=== PATIENT | male | born 1955 | race Caucasian/White ===

== ENCOUNTER 2018-03-11 13:18 | Inpatient (IN) | payer MEDICARE, SELFPAY ==
[2018-03-11] VITALS (55 sets, daily range): BP systolic 128–218; BP diastolic 79–143; PULSE 63–87; RESP 5–26; TEMP 36.4–36.5; O2SAT 91–99
--- NOTE | 2018-03-11 13:31 | W.ED.GENAD ---
Discharge Plan Discharge Details Chief Complaint: Chest Pain Reason For Visit: CHEST PAIN, ELEVATED TROPONIN Admit Date/Time: 03/11/18 16:29 Admit Provider: Yeyo Roque Attending Provider: Yeyo Roque Primary Care Provider: Mirtha Reinoso V ED Provider: Milagro Reyes Discharge Data Discharge Date/Time-TO BE ENTERED AT DEPARTURE: 03/11/18 17:28 Medical Decision Making Luis Antonio Brandt is a 63 y/o man with h/o CKD, CAD with nonobstructing lesions on last cath, HTN, HLD, DM who presented to the emergency department with exertional chest pain over the past few days, worse this afternoon and not resolving with rest. On exam Pt with cardiac murmur, otherwise benign cardiopulmonary exam, no edema. Concern for ACS, PE, MSK pain, GERD, vs other. Exam/hx not c/w acute aortic process. Plan for EKG, ASA, CXR, screening labs, IVF, telemetry, SLNG. Pt with some improvement in pain with SLNG. Plan for NG gtt. EKG with inferior changes. Trop elevated. Called [facility], requested cardiology consult, informed by transfer center no beds available for NSTEMI-level Pts. EKG faxed. Called [facility], EKG faxed, spoke with Dr. Jolley of cardiology re: Pt repsentation and results, she reviewed EKG and recommended heparin gtt, plavix load 300mg continue NG gtt. Accepted for transfer, no bed availability. [facility] called back, agreeds with recs, also accepted Pt for transfer, no current beds available. Pt admitted to [facility] for NSTEMI. I have spent 40 minutes of critical care time with this critically ill pt, including discussions with consultants, monitoring of gtts, and frequent reassessments. Medical Records Medical records reviewed: Yes I reviewed the patient's medical records. Imaging Data Radiologic Study: Attestation: I personally reviewed and interpreted this imaging study as follows: Radiologist's impression: PORTABLE AP CHEST: No priors. The heart size and pulmonary vasculature are within normal limits. The mediastinum has a normal appearance. The lungs are clear. No effusions or pneumothoraces are identified. The bones are intact. IMPRESSION: Negative chest x-ray. Lab Data Lab results reviewed: Yes I reviewed the patient's lab results. ECG Data Attestation: I personally reviewed and interpreted this ECG (s) as follows: Interpretation: EKG shows normal sinus rhythm at 73, normal axis, left bundle branch block, subtle ST changes inferior leads compared to prior, no STEMI, nondiagnostic EKG repeat EKG unchanged Clinical Impression: NSTEMI Disposition: [facility] inpt [facility] General Mode of arrival: ambulatory. Date/Time Provider Initiated Documentation: 03/11/18 13:25. Limitations to Documentation: no limitations. Information obtained by: patient, RN notes reviewed and old records reviewed. HPI Narrative: Luis Antonio Brandt is a 63 y/o man with h/o CAD, CKD, DM, HLD, HTN presenting to the emergency department with chest pain. Pt reports that over the past few days he has been working on building a barn, and has noticed chest pressure radiating into his neck and arms intermittently during this time. Today at noon Pt was working on the barn, and developed same symptoms but worse in severity. Pt reports that chest pain did not improve with rest as it has in the past, and continues now. He denies any other pain. No fever, SOB, cough, n/t, weakness, n/v/d. Pt reports no recent illness, no recent travel. Has been eating and drinking normally. Related Data Home Medications Medication Instructions Recorded Confirmed bupropion HCl 150 mg PO DAILY 09/03/13 09/08/13 bupropion HCl [Wellbutrin] 75 mg PO . BEFORE 3PM 09/03/13 09/07/13 fluticasone 1 spry NS DAILY 09/03/13 09/08/13 hydrochlorothiazide 25 mg PO DAILY 09/03/13 03/11/18 hydrocodone-acetaminophen 1 ea PO Q4H #20 tab 09/03/13 03/11/18 insulin aspart U-100 [Novolog] 30 unit SQ TID 09/03/13 03/11/18 insulin glargine [Lantus] 50 unit SQ BID 09/03/13 09/08/13 lovastatin 40 mg PO HS 09/03/13 09/08/13 metformin [Glucophage] 1,000 mg PO BID 09/03/13 03/11/18 niacin [Niaspan] 500 mg PO BID 09/03/13 03/11/18 sitagliptin [Januvia] 100 mg PO DAILY 09/03/13 09/08/13 trazodone 100 mg PO HS 09/03/13 03/11/18 valsartan [Diovan] 320 mg PO HS 09/03/13 03/11/18 verapamil 240 mg PO HS 09/03/13 03/11/18 Previous Rx's Medication Instructions Recorded hydrocodone-acetaminophen 1 ea PO Q4H #20 tab 09/03/13 Allergies Allergy/AdvReac Type Severity Reaction Status Date / Time codeine AdvReac Intermediate Agitation Unverified 03/11/18 18:26 morphine AdvReac Intermediate Agitation Unverified 03/11/18 18:26 General Stated Complaint: Chest Pain ANGUS: 2 Review of Systems Review of Systems Constitutional: denies fevers Eyes: denies eye pain ENT: denies facial pain, dental pain, sore throat Cardiovascular: reports chest pain, denies edema Respiratory: denies SOB, cough GI: denies abdominal pain, vomiting, diarrhea : denies flank pain MSK: denies back pain, neck pain, arthralgias, myalgias Skin: denies rash Neuro: denies headaches, lightheadedness, weakness PFSH Medical History History of TIA (transient ischemic attack) (Chronic) Erectile dysfunction (Chronic) Depression (Chronic) CAD (coronary artery disease) (Chronic) BPV (benign positional vertigo) (Chronic) CKD (chronic kidney disease) (Chronic) Diabetes mellitus (Chronic) Morbid obesity with BMI of 45.0-49.9, adult (Chronic) Hyperlipidemia (Chronic) History of depression (Chronic) GERD (gastroesophageal reflux disease) (Chronic) Hypertension (Chronic) Surgical History History of Surgical Procedure (Chronic) Social History Smoking/Tobacco Use Status: Never Exam Narrative Exam Narrative: Constitutional: well and [id number], pleasant, conversing normally HENT: head atraumatic, normocephalic normal inspection, mucous membranes moist Eyes: conjunctiva normal, sclera normal, pupils 3mm b/l Neck: no stridor, normal ROM, trachea midline Chest: normal inspection Resp: normal work of breathing, LCTAB Cardio: normal rate, normal rhythm, 3/6 systolic murmur GI: abdomen soft, non-tender, non-distended Back: normal inspection, no rash Skin: warm, dry, normal color, no rash Neuro: alert, not altered, grossly non-focal, normal tone Ext: no edema Psych: normal mood, normal affect, normal behavior Course Vital Signs Temperature 36.4 C L 03/11/18 13:25 Pulse 74 03/11/18 13:25 Respiratory Rate 10 L 03/11/18 13:25 Blood Pressure 218/105 H 03/11/18 13:25 Pulse Oximetry 97 03/11/18 13:25 Temperature 36.4 C L 03/11/18 13:25 Temperature Source Skin 03/11/18 13:25 Pulse 74 03/11/18 13:25 Respiratory Rate 10 L 03/11/18 13:25 Blood Pressure 218/105 H 03/11/18 13:25 Blood Pressure Position Supine 03/11/18 13:25 Pulse Oximetry 97 03/11/18 13:25 Oxygen Delivery Method Room Air 03/11/18 13:25 Oxygen Flow Rate 0 03/11/18 13:25
--- NOTE | 2018-03-11 13:39 | DI.RAD_ITS ---
SYMPTOMS/DIAGNOSIS: CHEST PAIN PORTABLE AP CHEST: No priors. The heart size and pulmonary vasculature are within normal limits. The mediastinum has a normal appearance. The lungs are clear. No effusions or pneumothoraces are identified. The bones are intact. IMPRESSION: Negative chest x-ray.
[2018-03-11 13:51] LABS: Abs Immature Grans 0.02 k/cumm (0.0-0.09); Absolute Basophil Count 0.01 k/cumm (0.0-0.2); Absolute Eosinophil Count 0.28 k/cumm (0.0-0.7); Absolute Lymphocyte Count 1.07 k/cumm (1.2-3.4); Absolute Monocyte Count 0.75 k/cumm (0.11-0.7); Absolute Neutrophil Count 3.98 k/cumm (1.2-6.7); Basophils % 0.2; Eosinophils % 4.6; HCT 40.7 % (40.0-50.0); HGB 14.2 g/dL (13.5-17.5); Immature Grans % 0.3; Lymphocytes % 17.5; Mean Corp. HGB Concentration 34.9 g/dL (32.0-36.0); Mean Corpuscular Hemoglobin 30.2 pg (27.0-33.0); Mean Corpuscular Volume 86.6 fL (80-95); Mean Platelet Volume 9.8 fL (8.0-11.0); Monocytes % 12.3; Neutrophils % 65.1; Platelet Count 221 x1000/uL (130-400); RBC Distribution Width 13.4 % (11.8-14.1); White Blood Cell Count 6.11 k/cumm (4.4-10.8)
--- NOTE | 2018-03-11 13:54 | ED.GENADUL_ITS ---
Discharge Plan Discharge Details Chief Complaint: Chest Pain Reason For Visit: CHEST PAIN, ELEVATED TROPONIN Admit Date/Time: 03/11/18 16:29 Admit Provider: Yeyo Roque Attending Provider: Yeyo Roque Primary Care Provider: Mirtha Reinoso V ED Provider: Milagro Reyes Discharge Data Discharge Date/Time-TO BE ENTERED AT DEPARTURE: 03/11/18 17:28 Medical Decision Making Luis Antonio Brandt is a 63 y/o man with h/o CKD, CAD with nonobstructing lesions on last cath, HTN, HLD, DM who presented to the emergency department with exertional chest pain over the past few days, worse this afternoon and not resolving with rest. On exam Pt with cardiac murmur, otherwise benign cardiopulm onary exam, no edema. Concern for ACS, PE, MSK pain, GERD, vs other. Exam/hx not c/w acute aortic process. Plan for EKG, ASA, CXR, screening labs, IVF, telemetry, SLNG. Pt with some improvement in pain with SLNG. Plan for NG gtt. EKG with inferior changes. Trop elevated. Called [facility], requested cardiology consult, informed by transfer center no beds available for NSTEMI-level Pts. EKG faxed. Called [facility], EKG faxed, spoke with Dr. Jolley of cardiology re: Pt repsentation and results, she reviewed EKG and recommended heparin gtt, plavix load 300mg continue NG gtt. Accepted for transfer, no bed availability. [facility] called back, agreeds with recs, also accepted Pt for transfer, no current beds available. Pt admitted to [facility] for NSTEMI. I have spent 40 minutes of critical care time with this critically ill pt, including discussions with consultants, monitoring of gtts, and frequent reassessments. Medical Records Medical records reviewed: Yes I reviewed the patient's medical records. Imaging Data Radiologic Study: Attestation: I personally reviewed and interpreted this imaging study as follows: Radiologist's impression: PORTABLE AP CHEST: No priors. The heart size and pulmonary vasculature are within normal limits. The mediastinum has a normal appearance. The lungs are clear. No effusions or pneumothoraces are identified. The bones are intact. IMPRESSION: Negative chest x-ray. Lab Data Lab results reviewed: Yes I reviewed the patient's lab results. ECG Data Attestation: I personally reviewed and interpreted this ECG (s) as follows: Interpretation: EKG shows normal sinus rhythm at 73, normal axis, left bundle branch block, subtle ST changes inferior leads compared to prior, no STEMI, nondiagnostic EKG repeat EKG unchanged Clinical Impression: NSTEMI Disposition: [facility] inpt [facility] General Mode of arrival: ambulatory . Date/Time Provider Initiated Documentation: 03/11/18 13:25 . Limitations to Documentation: no limitations . Information obtained by: patient, RN notes reviewed and old records reviewed . HPI Narrative: Luis Antonio Brandt is a 63 y/o man with h/o CAD, CKD, DM, HLD, HTN presenting to the emergency department with chest pain. Pt reports that over the past few days he has been working on building a barn, and has noticed chest pressure radiating into his neck and arms intermittently during this time. Today at noon Pt was working on the barn, and developed same symptoms but worse in severity. Pt reports that chest pain did not improve with rest as it has in the past, and continues now. He denies any other pain. No fever, SOB, cough, n/t, weakness, n/v/d. Pt reports no recent illness, no recent travel. Has been eating and drinking normally. Related Data Home Medications Medication Instructions Recorded Confirmed bupropion HCl 150 mg PO DAILY 09/03/13 09/08/13 bupropion HCl [Wellbutrin] 75 mg PO . BEFORE 3PM 09/03/13 09/07/13 fluticasone 1 spry NS DAILY 09/03/13 09/08/13 hydrochlorothiazide 25 mg PO DAILY 09/03/13 03/11/18 hydrocodone-acetaminophen 1 ea PO Q4H #20 tab 09/03/13 03/11/18 insulin aspart U-100 [Novolog] 30 unit SQ TID 09/03/13 03/11/18 insulin glargine [Lantus] 50 unit SQ BID 09/03/13 09/08/13 lovastatin 40 mg PO HS 09/03/13 09/08/13 metformin [Glucophage] 1,000 mg PO BID 09/03/13 03/11/18 niacin [Niaspan] 500 mg PO BID 09/03/13 03/11/18 sitagliptin [Januvia] 100 mg PO DAILY 09/03/13 09/08/13 trazodone 100 mg PO HS 09/03/13 03/11/18 valsartan [Diovan] 320 mg PO HS 09/03/13 03/11/18 verapamil 240 mg PO HS 09/03/13 03/11/18 Previous Rx's Medication Instructions Recorded hydrocodone-acetaminophen 1 ea PO Q4H #20 tab 09/03/13 Allergies Allergy/AdvReac Type Severity Reaction Status Date / Time codeine AdvReac Intermediate Agitation Unverified 03/11/18 18:26 morphine AdvReac Intermediate Agitation Unverified 03/11/18 18:26 General Stated Complaint: Chest Pain ANGUS: 2 Review of Systems Review of Systems Constitutional: denies fevers Eyes: denies eye pain ENT: denies facial pain, dental pain, sore throat Cardiovascular: reports chest pain, denies edema Respiratory: denies SOB, cough GI: denies abdominal pain, vomiting, diarrhea : denies flank pain MSK: denies back pain, neck pain, arthralgias, myalgias Skin: denies rash Neuro: denies headaches, lightheadedness, weakness PFSH Medical History History of TIA (transient ischemic attack) (Chronic) Erectile dysfunction (Chronic) Depression (Chronic) CAD (coronary artery disease) (Chronic) BPV (benign positional vertigo) (Chronic) CKD (chronic kidney disease) (Chronic) Diabetes mellitus (Chronic) Morbid obesity with BMI of 45.0-49.9, adult (Chronic) Hyperlipidemia (Chronic) History of depression (Chronic) GERD (gastroesophageal reflux disease) (Chronic) Hypertension (Chronic) Surgical History History of Surgical Procedure (Chronic) Social History Smoking/Tobacco Use Status: Never Exam Narrative Exam Narrative: Constitutional: well and [id number], pleasant, conversing normally HENT: head atraumatic, normocephalic normal inspection, mucous membranes moist Eyes: conjunctiva normal, sclera normal, pupils 3mm b/l Neck: no stridor, normal ROM, trachea midline Chest: normal inspection Resp: normal work of breathing, LCTAB Cardio: normal rate, normal rhythm, 3/6 systolic murmur GI: abdomen soft, non-tender, non-distended Back: normal inspection, no rash Skin: warm, dry, normal color, no rash Neuro: alert, not altered, grossly non-focal, normal tone Ext: no edema Psych: normal mood, normal affect, normal behavior Course Vital Signs Temperature 36.4 C L 03/11/18 13:25 Pulse 74 03/11/18 13:25 Respiratory Rate 10 L 03/11/18 13:25 Blood Pressure 218/105 H 03/11/18 13:25 Pulse Oximetry 97 03/11/18 13:25 Temperature 36.4 C L 03/11/18 13:25 Temperature Source Skin 03/11/18 13:25 Pulse 74 03/11/18 13:25 Respiratory Rate 10 L 03/11/18 13:25 Blood Pressure 218/105 H 03/11/18 13:25 Blood Pressure Position Supine 03/11/18 13:25 Pulse Oximetry 97 03/11/18 13:25 Oxygen Delivery Method Room Air 03/11/18 13:25 Oxygen Flow Rate 0 03/11/18 13:25
--- NOTE | 2018-03-11 14:01 | NUR.NOTE ---
Nursing Note: patient reveived 3 nitro 0.4 sl per MD order, patient reports chest pain improved with nitro. 2lpm nc cannula applied, reports feeling hard to breath
[2018-03-11 14:18] LABS: ALT 31 U/L (12-78); AST 27 U/L (15-37); Alkaline Phosphatase 98 U/L (46-116); Anion Gap 11.6 mmol/L (3-11); BUN 25 mg/dL (7-18); Bilirubin, Total 0.4 mg/dL (0.2-1.0); CO2 24.4 mmol/L (21.0-32.0); CREATININE 1.52 mg/dL (0.70-1.30); Calcium 9.3 mg/dL (8.5-10.1); Chloride 99 mmol/L (98-107); Estimated GFR 46.26 (mL/min/1.73m2); Glucose 308 mg/dL (70-100); Potassium 4.1 mmol/L (3.5-5.1); Sodium 135 mmol/L (136-145); Total Protein 8.1 g/dL (6.4-8.2)
[2018-03-11 14:19] LABS: Troponin I 0.14 ng/mL (0.00-0.06)
--- NOTE | 2018-03-11 14:38 | NUR.NOTE ---
Nursing Note: patient has # 18 right ac and #20 to right hand +Nursing Note:
[2018-03-11] MEDS: Aspirin 81 MG CHEW 324 MG CH (14:42)
--- NOTE | 2018-03-11 14:54 | NUR.NOTE ---
patient receiving IV nitro, patient q 10 minute vitals pain level 04/09 Nursing Note:
[2018-03-11] MEDS: Clopidogrel 300 MG TAB PO (15:24)
--- NOTE | 2018-03-11 15:39 | NUR.NOTE ---
nitro drip titrated from 10mcg/min to 15mcg/min to 20mcg/min for chest pain of 1.5/10 Nursing Note:
[2018-03-11] MEDS: Normal Saline 500 ML IV (15:45)
[2018-03-11 15:51] LABS: PTT Activated 23.3 sec (21.0-31.4)
[2018-03-11 15:55] LABS: Magnesium 2.1 mg/dL (1.8-2.4)
--- NOTE | 2018-03-11 15:56 | NUR.NOTE ---
nitro 25mcg/min for 1/10 pain Nursing Note:
--- NOTE | 2018-03-11 16:13 | HPE_ITS ---
Date of service: 03/11/18 Time of Service: 16:13 Assessment and Plan (1) Elevated troponin: Current visit: Yes Status: Acute Exertional symptoms with reported inferior EKG changes and minimal, equivocal elevation in troponin.Exertional symptoms are in morbidly obese patient in his 60's, with a history of insulin dependent diabetes, dyslipidemia , and hypertension. Of note, his LHC in 01/2016 shows non-obstructive CAD, but also with a discrete 40% RCA stenosis. He was also noted to have a significant elevation in his systolic blood pressure - reportedly he has been running values over 200 for some time since discontinuation of his ARB therapy as an outpatient, per verbal report from spouse. Exertional symptoms in 63 year old male with 3 or more risk factors as well as known but non flow limiting coronary lesions. Merits diagnostic and potentially therapeutic LHC - [facility] pending bed availability. For tonight will continue nitro and heparin gtt. Patient has been plavix loaded , and will continue on daily clopidogrel. Also start daily aspirin, BB, and high potency statin. (2) Diabetes mellitus: Current visit: No Status: Chronic Continue basal insulin but decrease dose by half as patient is currently NPO. Also on sliding scale coverage. Metformin on hold. (3) Hyperlipidemia: Current visit: No Status: Chronic High potency statin as above. (4) CKD (chronic kidney disease): Current visit: No Status: Chronic Current creatinine at baseline. (5) CAD (coronary artery disease): Current visit: No Status: Chronic Nonobstructive CAD by [facility] in January of 2016. Mild diffuse disease in the LCx and LAD, and RCA with 40% non flow limiting lesion. Left main reportedly normal. Treat as above. (6) History of TIA (transient ischemic attack): Current visit: No Status: Chronic Noted. (7) DVT prophylaxis: Current visit: Yes Status: Acute Currently on anticoagulation with heparin gtt. Initiate PPI therapy for GI prophylaxis. (8) Advance directive discussed with patient: Current visit: Yes Status: Acute Full code. History of Present Illness Chief Complaint: Chest Pain Narrative: 63 year man with past medical history significant for IDDM, Uncontrolled Hypertension, Dyslipidemia, and Obesity presents to [facility] Emergency Department with complaints of chest pain. Mr. Brandt has a history of Non-obstructive CAD by LHC at [facility] on 01/2016. He also has a family history of CAD, as well as a personal history of IDDM, HTN, dyslipidemia and Obesity. His other medical history includes GERD, Insomnia, depression, MATA on CPAP, BPV, and ED. The patient reports not feeling 'well' for the last week, confirmed to be closer to 2 months by his . He reports exertional symptoms that include neck pain with bilateral upper extremity discomfort that occurs with exertion, described as 'throbbing' from his axilla to his fingertips, along with chest discomfort that he describes as 'throbbing and heartburn' like. When asked to point to the pain he indicates discomfort in his epigastric region. He also reports that rest usually alleviates his symptoms. The patient reportedly was out working today when he experienced similiar symptoms, and presented to the ED for further evaluation. Work-up in the ED included an EKG described as abnormal with subtle inferior changes - unfortunately EKG was unavailable for review at time of exam. His labs were significant for a mild elevation in creatinine at 1.5, but unchanged from prior. His troponin was minimally elevated at 0.14. Given the concern for NSTEMI in high risk patient he was accepted for transfer to tertiary center pending bed availability. Review of Systems Review of Systems All systems reviewed & are unremarkable except as noted in HPI and below and Unobtainable due to PFSH History of TIA (transient ischemic attack) (Chronic) Erectile dysfunction (Chronic) Depression (Chronic) CAD (coronary artery disease) (Chronic) BPV (benign positional vertigo) (Chronic) CKD (chronic kidney disease) (Chronic) Diabetes mellitus (Chronic) Morbid obesity with BMI of 45.0-49.9, adult (Chronic) Hyperlipidemia (Chronic) History of depression (Chronic) GERD (gastroesophageal reflux disease) (Chronic) Hypertension (Chronic) History of Surgical Procedure (Chronic) Medical History History of TIA (transient ischemic attack) (Chronic) Erectile dysfunction (Chronic) Depression (Chronic) CAD (coronary artery disease) (Chronic) BPV (benign positional vertigo) (Chronic) CKD (chronic kidney disease) (Chronic) Diabetes mellitus (Chronic) Morbid obesity with BMI of 45.0-49.9, adult (Chronic) Hyperlipidemia (Chronic) History of depression (Chronic) GERD (gastroesophageal reflux disease) (Chronic) Hypertension (Chronic) Social History Smoking/Tobacco Use Status: Never Surgical History History of Surgical Procedure (Chronic) Social History Smoking/Tobacco Use Status: Never Meds Home Medications Medication Instructions Recorded Confirmed Type bupropion HCl 150 mg PO DAILY 09/03/13 09/08/13 History bupropion HCl [Wellbutrin] 75 mg PO . BEFORE 3PM 09/03/13 09/07/13 History fluticasone 1 spry NS DAILY 09/03/13 09/08/13 History hydrochlorothiazide 25 mg PO DAILY 09/03/13 03/11/18 History hydrocodone-acetaminophen 1 ea PO Q4H #20 tab 09/03/13 03/11/18 Rx insulin aspart U-100 [Novolog] 30 unit SQ TID 09/03/13 03/11/18 History insulin glargine [Lantus] 50 unit SQ BID 09/03/13 09/08/13 History lovastatin 40 mg PO HS 09/03/13 09/08/13 History metformin [Glucophage] 1,000 mg PO BID 09/03/13 03/11/18 History niacin [Niaspan] 500 mg PO BID 09/03/13 03/11/18 History sitagliptin [Januvia] 100 mg PO DAILY 09/03/13 09/08/13 History trazodone 100 mg PO HS 09/03/13 03/11/18 History valsartan [Diovan] 320 mg PO HS 09/03/13 03/11/18 History verapamil 240 mg PO HS 09/03/13 03/11/18 History Allergies Allergy/AdvReac Type Severity Reaction Status Date / Time codeine AdvReac Mild Agitation Unverified 03/11/18 13:41 Exam Narrative Exam Narrative: General: Patient appears minimally uncomfortable but in no acute distress, AAOX3, Obese Neck: Supple CV: Regular, nontachycardic, S1S2, No rubs, or gallops. 3/6 LLSB murmur appreciated. Pulmonary: Clear to auscultation bilaterally, no crackles, wheezing, or rhonchi Abdomen: + Bowel Sounds, soft, nontender, nondistended. Obese in contour. Vascular: No lower extremity edema Neurologic: CN II-XII grossly intact. No focal deficits. Psych: Normal mood and affect. Results Imaging Additional studies: Exam(s) a RAD:XR portable chest AP SYMPTOMS/DIAGNOSIS: CHEST PAIN PORTABLE AP CHEST: No priors. The heart size and pulmonary vasculature are within normal limits. The mediastinum has a normal appearance. The lungs are clear. No effusions or pneumothoraces are identified. The bones are intact. IMPRESSION: Negative chest x-ray. Labs : 03/11/18 13:30 03/11/18 13:30 Laboratory Results - last 24 hr 03/11/18 03/11/18 03/11/18 13:30 13:30 13:30 WBC 6.11 RBC 4.70 Hgb 14.2 Hct 40.7 MCV 86.6 MCH 30.2 MCHC 34.9 RDW 13.4 Plt Count 221 MPV 9.8 Immature Gran % 0.3 Neutrophils % 65.1 Lymphocytes % 17.5 Monocytes % 12.3 Eosinophils % 4.6 Basophils % 0.2 Absolute Neutrophils 3.98 Absolute Lymphocytes 1.07 L Absolute Monocytes 0.75 H Absolute Eosinophils 0.28 Absolute Basophils 0.01 APTT 23.3 Sodium 135 L Potassium 4.1 Chloride 99 Carbon Dioxide 24.4 Anion Gap 11.6 H BUN 25 H Creatinine 1.52 H Estimated GFR/1.73 m2 46.26 Glucose 308 H Calcium 9.3 Magnesium Total Bilirubin 0.4 AST 27 ALT 31 Alkaline Phosphatase 98 Troponin I 0.14 H Total Protein 8.1 Albumin 4.0 03/11/18 15:15 WBC RBC Hgb Hct MCV MCH MCHC RDW Plt Count MPV Immature Gran % Neutrophils % Lymphocytes % Monocytes % Eosinophils % Basophils % Absolute Neutrophils Absolute Lymphocytes Absolute Monocytes Absolute Eosinophils Absolute Basophils APTT Sodium Potassium Chloride Carbon Dioxide Anion Gap BUN Creatinine Estimated GFR/1.73 m2 Glucose Calcium Magnesium 2.1 Total Bilirubin AST ALT Alkaline Phosphatase Troponin I Total Protein Albumin Last Vital Signs Temp 36.4 C L 03/11/18 14:55 Pulse 81 03/11/18 15:57 Resp 14 03/11/18 14:55 BP 140/87 03/11/18 15:57 Pulse Ox 95 03/11/18 15:57
--- NOTE | 2018-03-11 16:16 | NUR.NOTE ---
patient examined by hospoitalist Nursing Note:
[2018-03-11] MEDS: Ondansetron 4 MG/2 ML VIAL IVP (16:23)
--- NOTE | 2018-03-11 16:58 | NUR.NOTE ---
patient's chest pain waxes and wanes, currently 2/, nitro gtt 30mcg/min Nursing Note:
--- NOTE | 2018-03-11 17:07 | NUR.NOTE ---
nitro drip increased to 35 mcg/min, urine out put 500 mL Nursing Note:
--- NOTE | 2018-03-11 17:25 | NUR.NOTE ---
patient report given to Neelam BARCENAS Nursing Note:
--- NOTE | 2018-03-11 18:15 | NUR.NOTE ---
1805 NTG drip turned up from 35mcg/min to 45 mcg/min 1810 45mcg/min Nursing Note:
[2018-03-11] MEDS: Pantoprazole 40 MG VIAL IVP (18:42)
[2018-03-11] MEDS: Normal Saline Flush 10 ML SYR IVP (18:43)
[2018-03-11] MEDS: Metoprolol 25 MG TAB PO (18:43)
== END 2018-03-11 19:00 | disposition other institution (70) | DRG 313 ==
LOC: ER 17:18 → ICU 17:47
PROVIDERS: Admitting Provider Internal Medicine; Emergency Provider Student in an Organized Health Care Education/Training Program; PCP Family Medicine; Visit Provider Internal Medicine
DX: R07.9 Chest pain, unspecified (principal); Z68.41 Body mass index [BMI] 40.0-44.9, adult; R74.8 Abnormal levels of other serum enzymes; R94.31 Abnormal electrocardiogram [ECG] [EKG]; E66.01 Morbid (severe) obesity due to excess calories; Z79.4 Long term (current) use of insulin; I10 Essential (primary) hypertension; E78.5 Hyperlipidemia, unspecified; I25.10 Atherosclerotic heart disease of native coronary artery without angina pectoris; E11.22 Type 2 diabetes mellitus with diabetic chronic kidney disease; N18.9 Chronic kidney disease, unspecified
CPT/HCPCS: 36415; 80053; 93005; 96361; 96365; 96366; 96368; 96375; 99223; 99291; 71045; 83735; 84484; 85025; 85730; 93010; J2405

== ENCOUNTER 2018-03-16 13:23 | Outpatient (CLI) | payer MEDICARE, SELFPAY ==
[2018-03-16 14:32] LABS: Anion Gap 11.5 mmol/L (3-11); BUN 33 mg/dL (7-18); CO2 26.5 mmol/L (21.0-32.0); CREATININE 1.96 mg/dL (0.70-1.30); Chloride 99 mmol/L (98-107); Glucose 383 mg/dL (70-100); Potassium 4.5 mmol/L (3.5-5.1); Sodium 137 mmol/L (136-145)
== END 2018-03-16 13:43 ==
PROVIDERS: PCP Family Medicine; Visit Provider Nurse Practitioner Adult Health
DX: I10 Essential (primary) hypertension (principal); N18.3 Chronic kidney disease, stage 3 (moderate)
CPT/HCPCS: 80048

== ENCOUNTER 2018-04-01 16:42 | Outpatient (RCR) | payer MEDICARE, SELFPAY | END 2018-04-30 23:59 | disposition home or self-care (01) | LOC: CR 16:42 | PROVIDERS: PCP Family Medicine; Visit Provider Family Medicine | DX: Z51.89 Encounter for other specified aftercare (principal) ==

== ENCOUNTER 2018-04-29 10:00 | Outpatient (RCR) | payer MEDICARE, SELFPAY | END 2018-04-30 23:59 | disposition home or self-care (01) | LOC: CR 10:00 | PROVIDERS: PCP Family Medicine; Visit Provider Family Medicine | DX: I25.2 Old myocardial infarction (principal); Z51.89 Encounter for other specified aftercare | CPT/HCPCS: S9472 ==

== ENCOUNTER 2018-05-25 09:00 | Outpatient (RCR) | payer MEDICARE, SELFPAY | END 2018-05-28 23:59 | disposition home or self-care (01) | LOC: CR 09:00 | PROVIDERS: PCP Family Medicine; Visit Provider Family Medicine | DX: I25.2 Old myocardial infarction (principal); I10 Essential (primary) hypertension; Z51.89 Encounter for other specified aftercare | CPT/HCPCS: S9472 ==

== ENCOUNTER 2018-06-24 09:00 | Outpatient (RCR) | payer MEDICARE, SELFPAY | END 2018-06-28 23:59 | disposition home or self-care (01) | LOC: CR 09:00 | PROVIDERS: PCP Family Medicine; Visit Provider Family Medicine | DX: I25.10 Atherosclerotic heart disease of native coronary artery without angina pectoris (principal); I10 Essential (primary) hypertension; Z51.89 Encounter for other specified aftercare | CPT/HCPCS: S9472 ==

== ENCOUNTER 2018-07-27 09:00 | Outpatient (RCR) | payer MEDICARE, SELFPAY | END 2018-07-28 23:59 | disposition home or self-care (01) | LOC: CR 09:00 | PROVIDERS: PCP Family Medicine; Visit Provider Family Medicine | DX: I25.10 Atherosclerotic heart disease of native coronary artery without angina pectoris (principal); I10 Essential (primary) hypertension; Z51.89 Encounter for other specified aftercare | CPT/HCPCS: S9472 ==

== ENCOUNTER 2018-08-03 09:00 | Outpatient (RCR) | payer MEDICARE, SELFPAY | END 2018-08-28 23:59 | disposition home or self-care (01) | LOC: CR 09:00 | PROVIDERS: PCP Family Medicine; Visit Provider Family Medicine | DX: I25.10 Atherosclerotic heart disease of native coronary artery without angina pectoris (principal); I10 Essential (primary) hypertension; Z51.89 Encounter for other specified aftercare | CPT/HCPCS: S9472 ==

== ENCOUNTER 2022-04-22 15:03 | Outpatient (CLI) | payer OTHER, MEDICARE, SELFPAY ==
--- NOTE | 2022-04-22 | DI.RAD_ITS ---
Exam(s) XR KNEE RT 3V AP,LAT,BONNIE EXAM: XR KNEE RT 3V AP,LAT,BONNIE CLINICAL HISTORY: RT KNEE PAIN M25.561. TECHNIQUE: 2D digital imaging was performed. Three views. COMPARISON: CR LEFT KNEE 3 VIEW COMPLETE from 09/03/2013 FINDINGS: BONES: No acute fracture is present. No bony destructive lesion is seen. JOINTS: Mild narrowing medial femoral tibial joint space and mild periarticular spurring.. No joint effusion is seen. SOFT TISSUE: Multiple calcifications seen superior to the patella which are outside of the joint spac e. Few small calcifications are noted inferior to the patella, also outside of the joint space. Vas cular calcifications also noted. IMPRESSION: Degenerative changes and anterior soft tissue calcifications. DATA REPOSITORY: RADIATION DOSE DELIVERED:
--- NOTE | 2022-04-22 | DI.RAD_ITS ---
Exam(s) XR HIP RT COMPLETE AP PELVIS EXAM: XR HIP RT COMPLETE AP PELVIS INDICATION: RT HIP PAIN M25.551. COMPARISON: No exams were available for comparison TECHNIQUE: 2D digital imaging was performed. Three views. FINDINGS: Enthesophytes are noted at the iliac wings and greater trochanters. Hip joint spaces are maintained. There is mild acetabular spurring. The SI joints are unremarkable. There are degenerative changes at L5-S1. IMPRESSION: No acute abnormality. DATA REPOSITORY: RADIATION DOSE DELIVERED:
== END 2022-04-22 15:23 ==
PROVIDERS: PCP Family Medicine; Visit Provider Nurse Practitioner Family
DX: M17.11 Unilateral primary osteoarthritis, right knee (principal); M25.551 Pain in right hip
CPT/HCPCS: 73562; 73502

== ENCOUNTER → 2022-05-20 09:10 | Outpatient (BNVA) | payer OTHER, MEDICARE, SELFPAY | PROVIDERS: PCP Family Medicine; Referring Provider Family Medicine | CPT/HCPCS: 99203 ==

== ENCOUNTER 2022-06-13 01:29 | Outpatient (CLI) | payer OTHER, MEDICARE, SELFPAY ==
--- NOTE | 2022-06-13 15:00 | DI.RAD_ITS ---
Exam(s) RF JOINT INJECTION FLUORO GUID EXAM: RF JOINT INJECTION FLUORO GUID CLINICAL HISTORY: R HIP INJ UNDER FLUORO,PRIMARY OA RT HIP, M16.11. TECHNIQUE: Fluoroscopy was provided for the referring physician for guidance with performing a right hip injection procedure. COMPARISON: No exams were available for comparison FINDINGS: Please see procedure note for details. Fluoro time: 4 seconds RADIATION DOSE DELIVERED: Kar=0.43 mGy
[2022-06-13] MEDS: Bupivacaine 0.5% Pres-Free 10 ML VIAL 5 ML IJ (15:16)
[2022-06-13] MEDS: methylPREDNISolone ACETATE 80 MG/ML VIAL IM (15:16)
--- NOTE | 2022-06-13 17:34 | W.PROCNOTE ---
Date of service: 06/13/22 Time of Service: 15:30 Procedure Note Date of procedure: 06/13/22 Procedure: Right Hip Injection with Fluoroscopic Guidance Surgeon/Proceduralist/Physician: Nate Porter Procedure Diagnosis: Right Hip Osteoarthritis Procedure Indications: Lobo has had persistent pain of the RIGHT hip and groin. Noninvasive measures have been tried. To serve as both diagnostic and therapeutic, an injection under fluoroscopy was recommended. I had discussed the risks of the procedure and the patient elected to proceed. Procedure Description: Lobo was greeted in the flouroscopy room. The correct side was identified and the consent was reviewed with the patient and signed. The patient was then placed in the supine position on the fluoroscopy table. The RIGHT hip was then prepped with Chloraprep. The anterolateral injection starting point was identiifed by bony landmarks and fluoroscopy. The skin and soft tissue in the tract of the injection was anesthetized with 1% Lidocaine. A spinal needle was then inserted deep into the hip joint at the level of the lateral femoral neck under fluoroscopic guidance. A small amount of Omnipaque solution was injected to confirm intraarticular placement. Once confirmed, the hip was injected with 5cc of 0.5% Bupivicaine and 80mg of Depo-Medrol. A bandaid was placed on the injection site. The patient tolerated the procedure well.
== END 2022-06-13 01:49 ==
PROVIDERS: PCP Family Medicine; Visit Provider Student in an Organized Health Care Education/Training Program
DX: M16.11 Unilateral primary osteoarthritis, right hip (principal); M25.551 Pain in right hip
CPT/HCPCS: 20610; 77002; J1040

== ENCOUNTER 2022-10-28 12:09 | Outpatient (REF) | payer OTHER, MEDICARE, SELFPAY | END 2022-10-28 12:10 | disposition home or self-care (01) | LOC: LBN 12:09 | PROVIDERS: PCP Family Medicine; Visit Provider Nurse Practitioner Family | DX: R82.79 Other abnormal findings on microbiological examination of urine (principal); N12 Tubulo-interstitial nephritis, not specified as acute or chronic | CPT/HCPCS: 87077; 87086; 87186 ==

== ENCOUNTER 2022-11-16 17:04 | Outpatient (REF) | payer OTHER, MEDICARE, SELFPAY ==
[2022-11-16 17:40] LABS: BUN 27 mg/dL (7-18); CREATININE 1.7 mg/dL (0.70-1.30); Calcium 9.2 mg/dL (8.5-10.1); Chloride 106 mmol/L (98-107); Glucose 260 mg/dL (74-106); Sodium 143 mmol/L (136-145)
[2022-11-16 18:20] LABS: Bacteria Many HPF (Negative); C & S Indicated? C&S Done As Ordered; Casts Negative LPF (Negative); Crystals Negative HPF (Negative); Epithelial Cells Rare HPF (Negative); Mucus Trace (Negative); WBC >50 HPF (0-5)
== END 2022-11-16 17:05 | disposition home or self-care (01) ==
LOC: LBN 17:04
PROVIDERS: PCP Family Medicine; Visit Provider Physician Assistant Medical
DX: R33.9 Retention of urine, unspecified (principal); N12 Tubulo-interstitial nephritis, not specified as acute or chronic; R79.89 Other specified abnormal findings of blood chemistry; R82.79 Other abnormal findings on microbiological examination of urine; I10 Essential (primary) hypertension; E11.9 Type 2 diabetes mellitus without complications
CPT/HCPCS: 80048; 87077; 81015; 87086; 87186

== ENCOUNTER 2022-11-29 13:08 | Emergency (ER) | payer OTHER, MEDICARE, SELFPAY ==
[2022-11-29 13:13] VITALS: BP 150/95; PULSE 74; RESP 20; TEMP 36.8; O2SAT 95
--- NOTE | 2022-11-29 13:15 | RT.EKG_ITS ---
APPROVED REPORT Exam: Resting ECG Reason for Exam: chest pain Patient Location: E HR:73 bpm ECG Measurements Heart Rate [address] 258 P -5 QRSd 153 QRS 40 QT 428 T 5 QTc 471 Conclusion Sinus rhythm...normal P axis, V-rate 60- [address] interval...CT >220, V-rate 50- 90 Right bundle branch block...QRSd>120, terminal axis(90,270)
--- NOTE | 2022-11-29 13:30 | DI.MRI_ITS ---
Exam(s) MR BRAIN WO EXAM: MR BRAIN WO CLINICAL HISTORY: ?cva TECHNIQUE: Multiplanar multisequence MRI of the brain was performed. COMPARISON: No exams were available for comparison FINDINGS: Exam limited by motion. VENTRICLES AND EXTRA AXIAL SPACES: Normal in size and morphology for the patient's age. MIDLINE SHIFT: None. CEREBRAL PARENCHYMA: No focus of restricted diffusion to suggest acute infarct. No space-occupying le bhanu identified. Moderate atrophy, somewhat disproportionate to the patient's age. Mild scattered foci of high signal in the white matter consistent with sequela of chronic microvascular disease. HEMORRHAGE: None. BRAINSTEM/CEREBELLUM: Normal. VISUALIZED PARANASAL SINUSES/MASTOIDS:Clear. Vasculature: Normal flow void. PITUITARY GLAND: Unremarkable. ORBITS: Unremarkable. IMPRESSION: Limited exam due to motion. No acute abnormality. DATA REPOSITORY:
--- NOTE | 2022-11-29 13:45 | ED.GENADUL_ITS ---
Discharge Plan Discharge Details Chief Complaint: AMS/LOC Primary Care Provider: Esteban Tirado ED Provider: Castro Gutiérrez Home Meds and New Rx's Prescriptions: No Action amlodipine 5 mg tablet 5 mg PO DAILY gabapentin 300 mg capsule 300 mg PO TID oxybutynin chloride 10 mg tablet extended release 24hr 10 mg PO DAILY carvedilol 12.5 mg tablet 12.5 mg PO BID Rx Instructions: must administer with a meal/food zolpidem 10 mg tablet PO insulin glargine [Lantus U-100 Insulin] 100 UNIT/ML solution 50 unit SQ BID niacin [Niaspan Extended-Release] 500 MG tablet extended release 24 hr 500 mg PO BID Patient Comments: 09/07/13 STOPPED TAKING trazodone 100 MG tablet 100 mg PO HS bupropion HCl [Wellbutrin] 75 MG tablet 75 mg PO . BEFORE 3PM verapamil 240 MG tablet extended release 240 mg PO HS hydrochlorothiazide 25 MG tablet 25 mg PO DAILY fluticasone propionate 16 GM spray,suspension 1 spry NS DAILY Patient Comments: 09/07/13 NOT TAKING insulin aspart U-100 [Novolog PenFill U-100 Insulin] 100 UNIT/ML cartridge 30 unit SQ TID metformin [Glucophage] 1,000 mg tablet 1,000 mg PO DAILY bupropion HCl 150 mg tablet sustained-release 12 hr 150 mg PO BID semaglutide 0.25 mg or 0.5 mg (2 mg/3 mL) Pen Injector 0.5 mg SUBCUT QWEEK nitroglycerin 0.4 mg Tablet, Sublingual 0.4 mg SUBLINGUAL Q5-15M PRN Rx Instructions: do not exceed 3 doses per episode ketoconazole 2 % Cream 1 applic TOPICAL DAILY insulin degludec [Tresiba FlexTouch U-200] 200 unit/mL (3 mL) Insulin Pen 20 unit SUBCUT BID aspirin 81 mg Capsule 81 mg PO DAILY Medical Decision Making 67 yo male with hx of TIA, CAD, CKD, who was treated with oral antibiotics two weeks ago per the for a uti, who comes in with 3 days of confusion, dysuria and intermittent dyspnea. relays that he has been having trouble finding words at different times and today has had issues with simple tasks, she states he had trouble figuring out how to adjust the seat in the car despite doing this multiple times in the past and also was confused on how to unlock the door when he arrived here. He has not had fevers, abdominal pain. He is oriented x4, relies on his to answer a lot of questions and is very restless in the bed. HE has no focal motor or sensation deficits, CN II-XII intact. Unclear etiology for his confusion, he does note dysuria that has continued. Will obtain cbc, cmp, ekg/troponin, given the complaints of dyspnea obtain d dimer and also obtain MRI of the brain to evaluate for potential cva. pt stable, labs and MRI unremarkable, awaiting cxr. Will sign out to oncoming provider pending delta troponin Differential Diagnosis Differential Diagnosis: cva, electrolyte abnormality, uti Medical Records Medical records reviewed: Yes I reviewed the patient's medical records. Imaging Data Radiologic Study: Attestation: I personally reviewed and interpreted this imaging study as follows: Imaging: MRI Radiologist's impression: Exam(s) MR BRAIN WO EXAM: ? MR BRAIN WO CLINICAL HISTORY:? ?cva TECHNIQUE:? Multiplanar multisequence MRI of the brain was performed. COMPARISON:? No exams were available for comparison FINDINGS: Exam limited by motion. VENTRICLES AND EXTRA AXIAL SPACES: Normal in size and morphology for the patient's age. MIDLINE SHIFT: None. CEREBRAL PARENCHYMA: No focus of restricted diffusion to suggest acute infarct. No space-occupying lesion identified. ? Moderate atrophy, somewhat disproportionate to the patient's age.? Mild scattered foci of high signal in the white matter consistent with sequela of chronic microvascular disease. HEMORRHAGE: None. BRAINSTEM/CEREBELLUM: Normal. VISUALIZED PARANASAL SINUSES/MASTOIDS:Clear. Vasculature: Normal flow void. PITUITARY GLAND: Unremarkable. ORBITS: Unremarkable.? IMPRESSION: Limited exam due to motion.? No acute abnormality. Lab Data Lab results reviewed: Yes I reviewed the patient's lab results. ECG Data Attestation: I personally reviewed and interpreted this ECG (s) as follows: Prior ECG tracings: not available for review Interpretation: sinus rate of 73, pr 258 qtc 471 no stemi HPI General Mode of arrival: EMS . Date/Time Provider Initiated Documentation: 11/29/22 13:11 . Information obtained by: patient and family . History of Present Illness 67 year old M presents to the emergency department with the chief complaint of confusion, described as moderate, Patient started experiencing this day(s) (3) and it has been constant. No relieving factors improve symptom(s), No exacerbating factors reported . Patient notes shortness of breath; denies chest pain. Patient did receive the following treatments prior to arrival, none Related Data Home Medications Medication Instructions Recorded Confirmed bupropion HCl 75 mg tablet 75 mg PO . BEFORE 3PM 09/03/13 05/20/22 (Wellbutrin) fluticasone propionate 50 1 spry NS DAILY 09/03/13 05/20/22 mcg/actuation nasal spray,suspension hydrochlorothiazide 25 mg tablet 25 mg PO DAILY 09/03/13 11/29/22 insulin aspart U-100 100 unit/mL 30 unit SQ TID 09/03/13 11/29/22 subcutaneous cartridge (Novolog PenFill U-100 Insulin aspart) insulin glargine 100 unit/mL 50 unit SQ BID 09/03/13 11/29/22 subcutaneous solution (Lantus U-100 Insulin) niacin 500 mg tablet,extended 500 mg PO BID 09/03/13 05/20/22 release 24 hr (Niaspan) trazodone 100 mg tablet 100 mg PO HS 09/03/13 11/29/22 verapamil 240 mg tablet,extended 240 mg PO HS 09/03/13 05/20/22 release amlodipine 5 mg tablet 5 mg PO DAILY 05/20/22 11/29/22 bupropion HCl 150 mg tablet,12 hr 150 mg PO BID 05/20/22 11/29/22 sustained-release carvedilol 12.5 mg tablet 12.5 mg PO BID 05/20/22 11/29/22 gabapentin 300 mg capsule 300 mg PO TID 05/20/22 11/29/22 metformin 1,000 mg tablet 1,000 mg PO DAILY 05/20/22 05/20/22 (Glucophage) oxybutynin chloride 10 mg 10 mg PO DAILY 05/20/22 11/29/22 tablet,extended release 24 hr zolpidem 10 mg tablet PO 05/20/22 05/20/22 aspirin 81 mg capsule 81 mg PO DAILY 11/29/22 11/29/22 insulin degludec 200 unit/mL (3 20 unit subcut BID 11/29/22 11/29/22 mL) subcutaneous pen (Tresiba FlexTouch U-200 insulin) ketoconazole 2 % topical cream 1 applic topical DAILY 11/29/22 11/29/22 nitroglycerin 0.4 mg sublingual 0.4 mg sublingual Q5-15M PRN 11/29/22 11/29/22 tablet semaglutide 0.25 mg or 0.5 mg (2 0.5 mg subcut QWEEK 11/29/22 11/29/22 mg/3 mL) subcutaneous pen injector Allergies Allergy/AdvReac Type Severity Reaction Status Date / Time codeine AdvReac Intermediate Agitation Unverified 05/20/22 09:20 morphine AdvReac Intermediate Agitation Unverified 05/20/22 09:20 General Stated Complaint: AMS/LOC ANGUS: 3 Review of Systems All systems reviewed & are unremarkable except as noted in HPI and below Constitutional Constitutional: Denies chills, Denies fever(s) and Reports weakness Cardiovascular Cardiovascular: Denies chest pain and Reports dyspnea Respiratory Respiratory: Denies cough and Reports dyspnea Gastrointestinal Gastrointestinal: Denies abdominal pain, Denies nausea and Denies vomiting Genitourinary Genitourinary: Reports urinary frequency Integumentary/Breasts Skin/Breast: Denies rash Neurologic Neurologic: Reports weakness Psychiatric Psychiatric: Denies depression Endocrine Endocrine: Denies cold intolerance PFSH All Active Problems (Updated 05/20/22 @ 09:57 by MARITZA Marie) Primary osteoarthritis of right knee (Acute) Primary osteoarthritis of right hip (Acute) Advance directive discussed with patient (Acute) DVT prophylaxis (Acute) Elevated troponin (Acute) History of TIA (transient ischemic attack) (Chronic) Erectile dysfunction (Chronic) Depression (Chronic) CAD (coronary artery disease) (Chronic) BPV (benign positional vertigo) (Chronic) CKD (chronic kidney disease) (Chronic) History of Surgical Procedure (Chronic) a. Ruptured quad tendon Rec b. Excision bursa knee. Diabetes mellitus (Chronic) a. Uncontrolled. Morbid obesity with BMI of 45.0-49.9, adult (Chronic) Hyperlipidemia (Chronic) History of depression (Chronic) GERD (gastroesophageal reflux disease) (Chronic) Insomnia (Chronic) Hypertension (Chronic) Seasonal allergies (Chronic) Social History Smoking/Tobacco Use Status: Never Smoking risk assessment performed?: Yes Alcohol Intake: current Drug use: Never Substance use type: does not use Housing: house Do you feel safe at home: Yes Do you feel safe in your relationship?: Yes Exam Const Orientation: alert HENMT Head: normal to inspection Ears: external ears normal General nose exam: external nose normal Mouth: moist mucous membranes Eyes General: appearance normal, both eyes and all related structures Neck Neck: normal visual inspection Resp Effort & Inspection: normal respiratory effort and able to speak in complete sentences Auscultation: clear to auscultation bilaterally Cardio Jugular venous pressure: no JVD Rate: regular rate Heart Sounds: no murmurs GI Palpation: soft and nontender Skin General skin exam: no rashes or lesions noted Neuro General: patient alert and patient oriented x3 Extrem General: normal to inspection Psych Mental Status: mental status grossly normal Course Vital Signs Vital signs: Vital Signs Temperature 36.8 C 11/29/22 13:13 Pulse 74 11/29/22 13:13 Respiratory Rate 20 11/29/22 13:13 Blood Pressure 150/95 H 11/29/22 13:13 Pulse Oximetry 95 11/29/22 13:13 Temperature 36.8 C 11/29/22 13:13 Temperature Source Skin 11/29/22 13:13 Pulse 74 11/29/22 13:13 Respiratory Rate 20 11/29/22 13:13 Respiratory Effort Normal 11/29/22 13:25 Blood Pressure 150/95 H 11/29/22 13:13 Blood Pressure Position Sitting 11/29/22 13:13 Pulse Oximetry 95 11/29/22 13:13 Oxygen Delivery Method Room Air 11/29/22 13:13 Oxygen Flow Rate 0 11/29/22 13:13 Pain Level 0 11/29/22 13:13
[2022-11-29 13:55] LABS: BE (Venous) 3 mmol/L (-2-3); HCO3 (Venous) 28 mmol/L (23-28); O2 Sat (Venous) 55 %; TCO2 (Venous) 25 mmol/L (24-29); pCO2 (Venous) 44 mmHg (41-51); pH (Venous) 7.41 (7.31-7.41); pO2 (Venous) 30 mmHg
[2022-11-29 13:56] LABS: Abs Immature Grans 0.01 10^3/uL (0.0-0.06); Absolute Basophil Count 0.01 10^3/uL (0.0-0.2); Absolute Monocyte Count 0.78 10^3/uL (0.1-0.8); Absolute Neutrophil Count 1.68 10^3/uL (1.2-6.7); Basophils % 0.3; HCT 38.9 % (40.0-50.0); HGB 13.3 g/dL (13.5-17.5); Immature Grans % 0.3; Lymphocytes % 16.8; MCHC 34.2 % (32.0-36.0); MCV 88 fL (80-95); MPV 9.5 fL (8.0-11.0); Monocytes % 26.2; Neutrophils % 56.4; Platelet Count 166 10^3/uL (130-400); RBC 4.43 10^6/uL (4.36-5.78); RDW 13.8 % (11.8-14.1); RDW-SD 44.3 fL; WBC 2.98 10^3/uL (4.4-10.8)
[2022-11-29 14:22] LABS: ALT 47 U/L (16-63); AST 37 U/L (15-37); Albumin 3.7 g/dL (3.4-5.0); Alkaline Phosphatase 80 U/L (46-116); Anion Gap 9.9 mmol/L (3-11); BUN 22 mg/dL (7-18); Bilirubin, Total 0.6 mg/dL (0.2-1.0); CO2 27.1 mmol/L (21.0-32.0); CREATININE 1.8 mg/dL (0.70-1.30); Calcium 8.7 mg/dL (8.5-10.1); Chloride 98 mmol/L (98-107); Estimated GFR 40.24 (mL/min/1.73m2); Glucose 229 mg/dL (74-106); NT-proBNP 435 pg/mL (<300); Potassium 3.9 mmol/L (3.5-5.1); Sodium 135 mmol/L (136-145); Total Protein 7.7 g/dL (6.4-8.2); Troponin I < 50 ng/L (<or=60)
[2022-11-29 14:31] LABS: D-Dimer 687 ng/mlFEU (<500)
[2022-11-29 14:35] LABS: Bilirubin Negative (Negative); Blood Trace-intact (Negative); Clarity Clear (Clear); Glucose 100 mg/dL (Negative); Ketones Negative (Negative); Leukocyte Esterase Negative (Negative); Nitrite Negative (Negative); Specific Gravity 1.025 (1.005-1.025); Urobilinogen 0.2 mg/dL (Up to 0.2); pH 5.5 (5-8)
[2022-11-29 14:35] LABS: Procalcitonin < 0.1 ng/mL
[2022-11-29 14:41] LABS: Epithelial Cells Negative HPF (Negative); Other Cells Negative (Negative); RBC 0-2 HPF (0-2); WBC Negative HPF (0-5)
[2022-11-29] MEDS: LORazepam 2 MG/ML VIAL 1 MG IVP (14:41)
[2022-11-29 14:42] LABS: Bacteria Rare HPF (Negative); C & S Indicated? No; Casts Negative LPF (Negative); Crystals Negative HPF (Negative); Mucus Trace (Negative)
[2022-11-29 14:59] VITALS: RESP 16
--- NOTE | 2022-11-29 15:30 | DI.RAD_ITS ---
Exam(s) XR CHEST 2V PA LATERAL EXAM: XR CHEST 2V PA LATERAL CLINICAL HISTORY: shortness of breath TECHNIQUE: 2D digital imaging was performed. COMPARISON: CR XR PORTABLE CHEST AP from 03/11/2018 FINDINGS: HEART: Normal size. Aorta: Not dilated. PULMONARY VASCULATURE: Normal. LUNGS: Clear. PLEURAL SPACE: No pleural effusion or pneumothorax. BONE:Left shoulder prosthesis. Flowing osteophytes in the thoracic spine. IMPRESSION: No acute abnormality. DATA REPOSITORY: RADIATION DOSE DELIVERED:
--- NOTE | 2022-11-29 15:51 | ED.PROG_ITS ---
Date of service: 11/29/22 Time of Service: 15:51 Medical Decision Making Patient was signed out to me by my colleague Dr. Gutiérrez. Please refer to his HPI, physical exam, assessment and plan. At time of signout we are awaiting MRI results, repeat troponin, and chest x-ray. Chest x-ray was read as negative. MRI demonstrated no evidence of acute process. Repeat troponin returned normal. Patient was in the emergency department for total of 6 hours for his MRI results, initial and repeat/delta troponin, chest x-ray and laboratory work-up. At time of discharge patient was notably and visibly frustrated with the wait time he had here at the ED. I did discuss with the patient all of the findings on his MRI, and his laboratory work-up. Family member was at bedside. Patient currently shows no evidence of confusion. Laboratory work-up is relatively stable, WBC count slightly low, mild lymphopenia, but no neutropenia. D-dimer was age-adjusted normal. VBG normal. Electrolytes stable, urinalysis shows no evidence of infection. I also discussed with the patient and his family member at bedside the options of continued observation versus discharge. Patient made it unequivocally clear that it was his intention to leave immediately, and he did not want to be admitted or wait. I discussed risks and benefits of this. The patient made it clear that he did not want to have a lengthy discussion about this. Understanding the risks, patient is requesting to leave immediately. Patient will be discharged. Recommended close follow-up with his primary care provider. Discussed red flags for which to return. I have extensively reviewed the treatment plan and discharge instructions with the nuzhat hwang and their family. I have addressed all patient concerns at this time. The patient and family was made aware of what symptoms to monitor for that would warrant a return to the emergency department. Discussed the plan with the patient and family, they demonstrate verbal understanding and agreement with our assessment and plan at this time. The documentation in this chart was dictated using [employer] dictation software. Please excuse any dictation errors. FINDINGS: Exam limited by motion. VENTRICLES AND EXTRA AXIAL SPACES: Normal in size and morphology for the patient's age. MIDLINE SHIFT: None. CEREBRAL PARENCHYMA: No focus of restricted diffusion to suggest acute infarct. No space-occupying lesion identified. Moderate atrophy, somewhat disproportionate to the patient's age. Mild scattered foci of high signal in the white matter consistent with sequela of chronic microvascular disease. HEMORRHAGE: None. BRAINSTEM/CEREBELLUM: Normal. VISUALIZED PARANASAL SINUSES/MASTOIDS:Clear. Vasculature: Normal flow void. PITUITARY GLAND: Unremarkable. ORBITS: Unremarkable. IMPRESSION: Limited exam due to motion. No acute abnormality. FINDINGS: HEART: Normal size. Aorta: Not dilated. PULMONARY VASCULATURE: Normal. LUNGS: Clear. PLEURAL SPACE: No pleural effusion or pneumothorax. BONE:Left shoulder prosthesis. Flowing osteophytes in the thoracic spine. IMPRESSION: No acute abnormality. Sign Out Sign Out Data: Sign Out Comment: 3 days of intermittent shortness of breath and chest pain, also issue with simple tasks, pending delta troponin. Last updated by Castro Gutiérrez MD at 11/29/22 15:32 Discharge Plan Disposition Patient Disposition: Home Discharge Details Clinical Impression: Acute confusion Primary Care Provider: Esteban Tirado ED Provider: Sabino Don Home Meds and New Rx's Prescriptions: No Action amlodipine 5 mg tablet 5 mg PO DAILY gabapentin 300 mg capsule 300 mg PO TID oxybutynin chloride 10 mg tablet extended release 24hr 10 mg PO DAILY carvedilol 12.5 mg tablet 12.5 mg PO BID Rx Instructions: must administer with a meal/food zolpidem 10 mg tablet PO insulin glargine [Lantus U-100 Insulin] 100 UNIT/ML solution 50 unit SQ BID niacin [Niaspan Extended-Release] 500 MG tablet extended release 24 hr 500 mg PO BID Patient Comments: 09/07/13 STOPPED TAKING trazodone 100 MG tablet 100 mg PO HS bupropion HCl [Wellbutrin] 75 MG tablet 75 mg PO . BEFORE 3PM verapamil 240 MG tablet extended release 240 mg PO HS hydrochlorothiazide 25 MG tablet 25 mg PO DAILY fluticasone propionate 16 GM spray,suspension 1 spry NS DAILY Patient Comments: 09/07/13 NOT TAKING insulin aspart U-100 [Novolog PenFill U-100 Insulin] 100 UNIT/ML cartridge 30 unit SQ TID metformin [Glucophage] 1,000 mg tablet 1,000 mg PO DAILY bupropion HCl 150 mg tablet sustained-release 12 hr 150 mg PO BID semaglutide 0.25 mg or 0.5 mg (2 mg/3 mL) Pen Injector 0.5 mg SUBCUT QWEEK nitroglycerin 0.4 mg Tablet, Sublingual 0.4 mg SUBLINGUAL Q5-15M PRN Rx Instructions: do not exceed 3 doses per episode ketoconazole 2 % Cream 1 applic TOPICAL DAILY insulin degludec [Tresiba FlexTouch U-200] 200 unit/mL (3 mL) Insulin Pen 20 unit SUBCUT BID aspirin 81 mg Capsule 81 mg PO DAILY Discharge Instructions Instructions: Chest Pain (ED), Urinary Urgency and Frequency (DC) Additional Instructions: At this time your MRI has returned and shows no significant abnormalities. Your urinalysis shows no evidence of infection. Your laboratory work-up is notably reassuring. There is no evidence of heart attack in your labs. Please follow- up closely with your primary care provider. If you notice any worsening of your symptoms, or any new symptoms such as vomiting, diarrhea, fever, chills, shortness of breath, chest pain, numbness, weakness, or fainting , please return immediately to the emergency department for reevaluation. Please follow up with your primary care provider as soon as possible for reassessment and reevaluation. As always, it was a pleasure participating in your medical care today. Referrals: Esteban Tirado [Primary Care Provider] - Discharge Data Discharge Date/Time-TO BE ENTERED AT DEPARTURE: 11/29/22 19:39
[2022-11-29 17:21] LABS: Troponin I < 50 ng/L (<or=60)
[2022-11-29 19:38] VITALS: BP 135/91; PULSE 77; RESP 24; O2SAT 95
== END 2022-11-29 19:39 | disposition home or self-care (01) ==
PROVIDERS: Emergency Medicine; Emergency Provider Student in an Organized Health Care Education/Training Program; PCP Internal Medicine
DX: R41.82 Altered mental status, unspecified (principal); R06.09 Other forms of dyspnea; R30.0 Dysuria; I25.10 Atherosclerotic heart disease of native coronary artery without angina pectoris; N18.9 Chronic kidney disease, unspecified
CPT/HCPCS: 80053; 82805; 84145; 93005; 96374; 99285; 70551; 71046; 81003; 81015; 83735; 83880; 84443; 84484; 85025; 85379; 93010; 99284; J2060

== ENCOUNTER 2023-03-12 18:37 | Outpatient (REF) | payer OTHER, MEDICARE, SELFPAY | END 2023-03-12 18:38 | disposition home or self-care (01) | LOC: LBN 18:37 | PROVIDERS: PCP Internal Medicine; Visit Provider Physician Assistant Medical | DX: R30.0 Dysuria (principal); B96.89 Other specified bacterial agents as the cause of diseases classified elsewhere | CPT/HCPCS: 87077; 87086; 87186 ==

== ENCOUNTER 2023-04-03 20:38 | Outpatient (REF) | payer OTHER, MEDICARE, SELFPAY ==
[2023-04-03 21:11] LABS: Bilirubin Negative (Negative); Blood Moderate (Negative); Clarity Sl Cloudy (Clear); Glucose Negative (Negative); Ketones Negative (Negative); Leukocyte Esterase Moderate (Negative); Nitrite Negative (Negative); Urobilinogen 0.2 mg/dL (Up to 0.2); pH 5.5 (5-8)
[2023-04-03 21:30] LABS: C & S Indicated? C&S Done As Ordered; WBC >50 HPF (0-5)
== END 2023-04-03 20:39 | disposition home or self-care (01) ==
LOC: LBN 20:38
PROVIDERS: PCP Internal Medicine; Visit Provider Physician Assistant Medical
DX: R30.0 Dysuria (principal); R82.998 Other abnormal findings in urine
CPT/HCPCS: 87077; 81003; 81015; 87086; 87186

== ENCOUNTER 2025-01-19 16:33 | Outpatient (CLI) | payer OTHER, MEDICARE, SELFPAY ==
--- NOTE | 2025-01-19 15:34 | DI.RAD_ITS ---
Exam(s) XR FOOT RT COMPLETE EXAM: XR FOOT RT COMPLETE CLINICAL HISTORY: RT HEAL/FOOT PAIN M.79.671. TECHNIQUE: 2D digital imaging was performed of the right foot. Three images were obtained. AP, oblique and lateral views were obtained. COMPARISON: No exams were available for comparison FINDINGS: BONES: No acute fracture is present. No bony destructive lesion is seen. There is a enthesophyte at the posterior calcaneus. There is a small plantar calcaneal spur. JOINTS: No dislocation present. The joint spaces are well maintained with mild degenerative changes present. SOFT TISSUE: There is a 8 mm long linear foreign body in the plantar soft tissues of the heel. There is a 4 mm linear foreign body in the plantar soft tissues adjacent to the distal 2nd metacarpal metatarsal bone. There is also linear foreign body in the soft tissues of the great toe. IMPRESSION: 1. There is no acute fracture or dislocation. 2. Three linear foreign bodies seen in the plantar soft tissues of the foot as described above. 3. Mild degenerative changes of the foot. DATA REPOSITORY: RADIATION DOSE DELIVERED:
== END 2025-01-19 16:53 ==
LOC: DI 16:35
PROVIDERS: PCP Internal Medicine; Visit Provider Physician Assistant Medical
DX: M79.671 Pain in right foot (principal)
CPT/HCPCS: 73630